=== PATIENT | female | born 1950 | race Caucasian/White ===

== ENCOUNTER 2023-08-24 10:14 | Outpatient (CLI) | payer MEDICARE, BC | END 2023-08-24 10:15 | disposition home or self-care (01) | LOC: CSHMAMMO 10:14 | PROVIDERS: ATTEND Family Medicine | DX: Z12.31 Encounter for screening mammogram for malignant neoplasm of breast (principal) | CPT/HCPCS: 77063; 77067 ==

== ENCOUNTER 2024-10-12 13:55 | Outpatient (CLI) | payer MEDICARE | END 2024-10-12 13:56 | disposition home or self-care (01) | LOC: CSHMAMMO 13:55 | PROVIDERS: ATTEND Family Medicine | DX: Z12.31 Encounter for screening mammogram for malignant neoplasm of breast (principal); Z78.0 Asymptomatic menopausal state | CPT/HCPCS: 77063; 77067; 77080 ==

== ENCOUNTER 2025-05-11 12:54 | Outpatient (CLI) | payer MEDICARE | END 2025-05-11 12:55 | disposition home or self-care (01) | LOC: CSHMRI 12:54 | PROVIDERS: ATTEND Family Medicine | DX: R90.89 Other abnormal findings on diagnostic imaging of central nervous system (principal) | CPT/HCPCS: 70551 ==

== ENCOUNTER 2025-06-05 08:49 | Outpatient (CLI) | payer MEDICARE ==
[2025-06-05 09:52] LABS: Estimated GFR - POC 60.0
[2025-06-05] MEDS ORDERED: Iopamidol 370 76% 100 ML VIAL ONE (14:07)
== END 2025-06-05 08:50 | disposition home or self-care (01) ==
LOC: CSHCT 08:49
PROVIDERS: ATTEND Thoracic Surgery (Cardiothoracic Vascular Surgery)
DX: I65.23 Occlusion and stenosis of bilateral carotid arteries (principal)
CPT/HCPCS: 70498; 82565